=== PATIENT | male | born 1965 ===

== ENCOUNTER 2020-10-25 23:57 | Emergency (ER) | payer MEDICAID ==
[~2020-10-25] VITALS: Ht 177.8 cm; Wt 95.3 kg
[2020-10-26] MEDS ORDERED: ETOMIDATE 20 MG/10 ML VIAL IV ONE
[2020-10-26] MEDS ORDERED: SUCCINYLCHOLINE CHLORIDE 200 MG/10 ML VIAL IV ONE
[2020-10-26] MEDS ORDERED: LABETALOL HCL 100 MG/20 ML VIAL ONE (00:28)
[2020-10-26] MEDS: LABETALOL HCL 100 MG/20 ML VIAL IV ONE ×2 (00:30→00:50)
[2020-10-26] MEDS ORDERED: levETIRAcetam 500 MG/5 ML VIAL IV ONE (00:50)
[2020-10-26] MEDS ORDERED: hydrALAZINE HCL 20 MG/1 ML VIAL ONE ×3 (00:50→01:14)
[2020-10-26] MEDS ORDERED: NICARDIPINE IN NS 20 MG/200 ML PIGGYBACK IV ONE (01:15)
[2020-10-26 01:23] LABS: HEMATOCRIT 31.8 % (36.7-47.1); MEAN CORPUSCULAR HEMOGLOBIN 28.1 uug (23.8-33.4); MEAN CORPUSCULAR VOLUME 90.5 fL (73.0-96.2); PLATELET COUNT (AUTO) 372 K/uL (152-348)
[2020-10-26] MEDS ORDERED: NICARDIPINE IN NS 200 ML IV ONE (01:26)
[2020-10-26 01:30] VITALS: BP 226/97
[2020-10-26 01:30] LABS: ETHANOL < 3 MG/DL (0-0)
[2020-10-26 01:36] LABS: CREATININE 5.4 mg/dL (0.6-1.3); POTASSIUM 4.7 mmol/L (3.5-5.1)
[2020-10-26] MEDS ORDERED: PROPOFOL 100 ML ONE (02:00)
[2020-10-26 02:18] LABS: THYROID STIMULATING HORMONE 2.829 mIU/mL (0.358-3.740)
[2020-10-26] MEDS ORDERED: levETIRAcetam IV 1,000 MG in IV DEXTROSE 5% 100 ML IV ONE (02:45)
[2020-10-26] MEDS ORDERED: hydrALAZINE HCL 20 MG/1 ML VIAL IV ONE (02:45)
[2020-10-26] MEDS ORDERED: PROPOFOL 1,000 MG/100 ML BOTTLE IV ONE (02:45)
[2020-10-26] MEDS ORDERED: LABETALOL HCL 100 MG/20 ML VIAL IV ONE (02:45)
[2020-10-26 03:18] LABS: ABG BASE EXCESS -9.7 mmol/L; ABG HCO3 15.4 mmol/L; ABG PCO2 31.3 mmHg (35.0-45.0); ABG PH 7.311 (7.350-7.450); ABG PO2 432.2 mmHg (75.0-100.0); ABG SITE RIGHT RADIAL; ABG TOTAL HEMOGLOBIN 9.9 G/dL (13.5-18.0); COHb 0.4 % (0.5-1.5); MetHb 0.3 % (0.0-1.5); O2Hb 99.2 % (94.0-97.0); VENT MODE VENT - A/C; VT, ABG 550 mL
[2020-10-26 03:55] LABS: BILIRUBIN,DIRECT 0.2 mg/dL (0.0-0.2); BILIRUBIN,TOTAL 0.4 mg/dL (0.2-1.0); TOTAL PROTEIN, SERUM 7.2 g/dL (6.4-8.2)
== END 2020-10-26 03:52 | disposition short-term general hospital (02) ==
LOC: ER 23:59
DX: I61.9 Nontraumatic intracerebral hemorrhage, unspecified (principal); I16.1 Hypertensive emergency; N17.9 Acute kidney failure, unspecified; I12.9 Hypertensive chronic kidney disease with stage 1 through stage 4 chronic kidney disease, or unspecified chronic kidney disease; N18.9 Chronic kidney disease, unspecified; I21.4 Non-ST elevation (NSTEMI) myocardial infarction; E11.22 Type 2 diabetes mellitus with diabetic chronic kidney disease; Z20.822 Contact with and (suspected) exposure to COVID-19; D72.829 Elevated white blood cell count, unspecified; E87.2 Acidosis; R00.1 Bradycardia, unspecified
CPT/HCPCS: 31500; 36415; 36600; 70450; 71045; 80048; 80061; 80076; 80320; 84443; 84484; 85025; 85730; 87426; 93005; 96365; 96366; 96368; 96375; 96376; 99291; J0330; J0360 ×3; J1953; J3490 ×2; J7060; 70030-TC; A4663; G0480